=== PATIENT | female | born 1960 | race Caucasian/White ===

== ENCOUNTER 2023-06-23 15:23 | Outpatient (AMB) | payer BC, SELFPAY ==
--- NOTE | 2023-06-23 15:28 | AM.OFFWIN_ITS ---
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 The patient states that she has felt significantly fatigued and had intermittent chills since returning from [place] approximately 1 week ago. Patient denies having any fevers, headache, ear pain, difficulty swallowing, chest pain, cough or shortness of breath. Of note, upon initial evaluation the patient is oxygenation is 88% on room air which rises to 92% on room air. She smokes tobacco daily. Patient is not in respiratory distress upon evaluation. She has not taken any medication for treatment of her symptoms. Patient's PCP is at the [facility] in [place], [place]. Review of Systems Const All systems reviewed & are unremarkable except as noted in HPI and below Reports chills, Reports fatigue, Denies fever(s), Reports lethargy and Denies night sweats ENT Denies otalgia, Denies facial pain, Denies mouth pain, Denies sinus pain, Denies sinus pressure and Reports sore throat Card Denies chest pain, Denies dyspnea and Denies dyspnea on exertion Resp Denies chest congestion, Denies cough, Denies dyspnea and Denies dyspnea on exertion Neuro Reports no additional complaints Psych Reports no additional complaints Endo Reports fatigue [place]/Lymph Reports no additional complaints Aller/Immun Reports no additional complaints Physical Exam Vital Signs: Last Vital Signs Temp 98.5 F 06/23/23 15:29 Pulse 88 06/23/23 15:29 BP 120/60 06/23/23 15:29 Pulse Ox 89 L 06/23/23 15:29 Oxygen Delivery Method Room Air 06/23/23 15:29 BMI result Body Mass Index 21.6 Patient is hypoxic; upon reevaluation the POX rises to 92% on room air. Patient is talking in full sentences, is not tachypneic and is in no obvious respiratory distress. Const General: cooperative, no acute distress, ill appearing and tired appearing Nutritional Appearance: average body habitus Orientation/consciousness: patient oriented x3 Limitations: no limitations HEENT Head: Yes normal to inspection, Yes normocephalic and Yes atraumatic Ears: hearing grossly normal bilaterally, external ears normal, TM's normal bilaterally and EAC's normal General nose exam: Normal external nose present Face and sinus: Yes normal facial exam Mouth: moist mucous membranes abnormal (dry mucous membranes) and Abnormal oral and palatal mucosa present (single vesicle noted upper buccal mucosa ) vesicles Throat: Yes posterior oropharynx abnormal (erythematous without edema or exudates) Neck Lymphatic: no lymphadenopathy noted Resp Effort & Inspection: normal respiratory effort, able to speak in complete sentences, no audible wheezes, no cough, no pursed lip breathing and no respiratory distress Auscultation: clear to auscultation bilaterally, no crackles, no rales, no r honchi, no wheezes and diminished lung sounds (throughout) Cardio Rate: regular rate (patient is not tachycardic) Rhythm: regular rhythm Neuro General: patient oriented x3 Extrem Other: No calf tenderness bilaterally. Psych Appearance: grossly normal Mental Status: mental status grossly normal Insight: Good insight present (Psych) Judgement: Good judgement present (Psych) Results Reviewed Results Reviewed: CXR reviewed with patient - possible RLL infiltrate. Assessment & Plan Assessment & Plan (1) Pharyngitis: Code(s): J02.9 - Acute pharyngitis, unspecified Plan: Tylenol or ibuprofen as needed for pharyngitis. (2) Pneumonia: Code(s): J18.9 - Pneumonia, unspecified organism Plan: Double coverage with doxy and a cephalosporin. Patient to follow-up with PCP next week for a reevaluation of her symptoms. Orders: Orders XR chest 2V Today R09.02 - Hypoxemia Medications: New cefdinir 600 mg (2 x 300 mg) PO DAILY 10 caps 0RF doxycycline monohydrate (Monodox) 100 mg PO BID 20 caps 0RF Patient Instructions: Patient is not tachycardic, has no calf tenderness bilaterally and is not tachypneic. I suspect this patient's low oxygen levels are secondary to undiagnosed COPD. I have had a long conversation with the patient and her stating that she warrants emergency room level of care at this time. I have urged them to go to the emergency department however will discharge them with antibiotic therapy. A recheck of this patient's oxygen is 91% on room air. I have discussed my concerns regarding pulmonary emboli, COPD, ACS and worsening hypoxia warranting further work.up emergently in the ED. The patient and her indicate that they understand my concerns. Coding Level of Care Code New Pt Level 4 (57032) Diagnoses Pharyngitis J02.9 Pneumonia J18.9 Time Spent (min) 35
[2023-06-23 15:29] VITALS: BP 120/60; PULSE 88; TEMP 36.9; O2SAT 89; BMI 21.6
== END 2023-06-23 16:40 | disposition home or self-care (01) ==
PROVIDERS: PCP Family Medicine; Visit Provider Physician Assistant
DX: J02.9 Acute pharyngitis, unspecified (principal); J18.9 Pneumonia, unspecified organism
CPT/HCPCS: 99204

== ENCOUNTER 2023-06-23 15:43 | Outpatient (REF) | payer BC, SELFPAY ==
--- NOTE | ~2023-06-23 | XR_ITS ---
EXAMINATION: XR CHEST CLINICAL INFORMATION: Hypoxemia COMPARISON: None available. TECHNIQUE: 2 views of the chest were obtained. FINDINGS: Lungs are clear. No pulmonary vascular congestion. There is no pleural effusion. The heart size is normal. The cardiac and mediastinal contours are normal. . There are multilevel degenerative changes of dorsal spine. Surgical clips in left axilla. XR/XR chest 2V IMPRESSION: Unremarkable examination.
== END 2023-06-23 15:44 | disposition home or self-care (01) ==
LOC: HO.HMGCX 15:43
PROVIDERS: PCP Family Medicine; Visit Provider Physician Assistant
DX: R09.02 Hypoxemia (principal)
CPT/HCPCS: 71046